=== PATIENT | female | born 1980 | race Caucasian/White ===

== ENCOUNTER 2022-05-28 18:10 | Inpatient (IN) | payer BC, MEDICARE, OTHER ==
[~2022-05-28] VITALS: Ht 177.8 cm; Wt 60.3 kg
[2022-05-28] MEDS ORDERED: ONDANSETRON HCL INJ 2MG/ML 2ML 2 MG/ML VIAL IV STA (18:19)
[2022-05-28] MEDS ORDERED: KETOROLAC TROMETHAMINE 30 MG/ML VIAL IV STA (18:19)
[2022-05-28] MEDS ORDERED: SODIUM CHLORIDE 0.9% 1000ML 1,000 ML IV ONE ×2 (18:30→22:00)
[2022-05-28 18:31] LABS: BASOPHILS # (AUTO) 0.1 (0.0-0.1); BASOPHILS % 0.3 % (0.0-1.0); EOSINOPHILS # (AUTO) 0.1 (0.0-0.4); EOSINOPHILS % 0.3 % (0.0-6.0); HEMATOCRIT 42.2 % (34.2-44.1); HEMOGLOBIN 13.7 g/dL (12.0-16.0); LYMPHOCYTES # (AUTO) 0.7 (1.0-3.2); LYMPHOCYTES % 3.1 % (18.0-39.1); MEAN CORPUSCULAR HEMOGLOBIN 28.9 pg (28-32); MEAN CORPUSCULAR HGB CONC 32.5 g/dL (31-35); MONOCYTES # (AUTO) 1.8 (0.2-0.8); MONOCYTES % 7.4 % (4.4-11.3); NEUTROPHILS # (AUTO) 20.7 (2.1-6.9); NEUTROPHILS % 86.7 % (38.7-80.0); PLATELET COUNT 225 x10e3/uL (140-360); RED BLOOD COUNT 4.74 x10e6/uL (3.6-5.1); RED CELL DISTRIBUTION WIDTH 11.7 % (11.7-14.4)
[2022-05-28 18:52] LABS: ALBUMIN 3.7 g/dL (3.5-5.0); ANION GAP 13.7 mmol/L (8-16); CALCIUM 9.6 mg/dL (8.4-10.2); CREATININE, SERUM 0.8 mg/dL (0.57-1.11); POTASSIUM 3.7 mmol/L (3.5-5.1)
[2022-05-28 19:02] LABS: CREATINE KINASE 67 IU/L (29-168)
[2022-05-28 19:04] LABS: CLARITY,URINE CLEAR (CLEAR); COLOR,URINE YELLOW (YELLOW)
[2022-05-28 19:05] LABS: KETONES,URINE NEGATIVE (NEGATIVE); LEUKOCYTE ESTERASE ,URINE NEGATIVE (NEGATIVE); NITRITE,URINE NEGATIVE (NEGATIVE); PROTEIN,URINE DIPSTICK 2+ (NEGATIVE); URINE UROBILINOGEN 0.2 mg/dL (0.2 - 1)
[2022-05-28 19:06] LABS: LIPASE 14 U/L (8-78)
[2022-05-28 19:16] LABS: BACTERIA,URINE MODERATE /HPF; EPITHELIAL CELLS,URINE FEW /LPF; MUCUS,URINE MODERATE (RARE)
[2022-05-28] MEDS ORDERED: IOPAMIDOL 370 MG/ML 100 ML INFUS..BTL INJ ONE (19:39)
[2022-05-28] MEDS ORDERED: ACETAMINOPHEN 325 MG TAB PO PRN (20:45)
[2022-05-28] MEDS ORDERED: ONDANSETRON HCL INJ 2MG/ML 2ML 2 MG/ML VIAL IV PRN (20:45)
[2022-05-28] MEDS: ALBUTEROL SULF 0.083% NEB SOLN 3 ML NEB NEB SCH (21:23)
[2022-05-29] MEDS ORDERED: SODIUM CHLORIDE 0.9% 1000ML 1,000 ML IV ONE (00:15)
[2022-05-29] MEDS: SODIUM CHLORIDE 0.9% 1000ML 1,000 ML IV SCH ×3 (00:35→15:45)
[2022-05-29] MEDS: ALBUTEROL SULF 0.083% NEB SOLN 3 ML NEB NEB SCH ×5 (01:05→23:30)
[2022-05-29] MEDS: IPRATROPIUM BROMIDE 0.02% 2.5 ML NEB NEB SCH ×5 (01:05→23:30)
[2022-05-29 06:35] LABS: BASOPHILS % 0.1 % (0.0-1.0); LYMPHOCYTES # (AUTO) 0.9 (1.0-3.2); LYMPHOCYTES % 6.5 % (18.0-39.1); MEAN CORPUSCULAR HEMOGLOBIN 28.7 pg (28-32); MEAN CORPUSCULAR HGB CONC 31.6 g/dL (31-35); MEAN CORPUSCULAR VOLUME 90.9 fL (81-99); MONOCYTES # (AUTO) 1.1 (0.2-0.8); NEUTROPHILS # (AUTO) 10.9 (2.1-6.9); NEUTROPHILS % 79.6 % (38.7-80.0); PLATELET COUNT 140 x10e3/uL (140-360); RED BLOOD COUNT 3.41 x10e6/uL (3.6-5.1)
[2022-05-29 06:43] LABS: HEMOGLOBIN 9.8 g/dL (12.0-16.0)
[2022-05-29 06:59] LABS: ALBUMIN 2.5 g/dL (3.5-5.0); ANION GAP 9.9 mmol/L (8-16); CALCIUM 7.5 mg/dL (8.4-10.2); CREATINE KINASE 38 IU/L (29-168); CREATININE, SERUM 0.72 mg/dL (0.57-1.11); POTASSIUM 3.9 mmol/L (3.5-5.1)
[2022-05-29 07:58] VITALS: BP 79/57
[2022-05-29 07:59] VITALS: BP 79/57
[2022-05-29 11:37] VITALS: BP 91/63
[2022-05-29] MEDS ORDERED: MYSOLINE50 MG PO (11:58)
[2022-05-29] MEDS ORDERED: AUBAGIO14 MG PO (11:58)
[2022-05-29 14:42] LABS: CREATINE KINASE 48 IU/L (29-168)
[2022-05-29 16:22] VITALS: BP 93/50
[2022-05-29 20:00] VITALS: BP 87/54
[2022-05-29 20:12] VITALS: BP 87/54
[2022-05-30] VITALS (8 sets, daily range): BP systolic 92–120; BP diastolic 54–84
[2022-05-30] MEDS: ALBUTEROL SULF 0.083% NEB SOLN 3 ML NEB NEB SCH ×6 (03:45→23:40)
[2022-05-30] MEDS: SODIUM CHLORIDE 0.9% 1000ML 1,000 ML IV SCH ×2 (05:02→10:06)
[2022-05-30 05:34] LABS: BASOPHILS % 0.2 % (0.0-1.0); EOSINOPHILS % 0.5 % (0.0-6.0); LYMPHOCYTES # (AUTO) 0.7 (1.0-3.2); LYMPHOCYTES % 7.8 % (18.0-39.1); MEAN CORPUSCULAR HEMOGLOBIN 28.8 pg (28-32); MEAN CORPUSCULAR HGB CONC 33.3 g/dL (31-35); MEAN CORPUSCULAR VOLUME 86.5 fL (81-99); MONOCYTES # (AUTO) 0.6 (0.2-0.8); MONOCYTES % 7.4 % (4.4-11.3); NEUTROPHILS # (AUTO) 7.1 (2.1-6.9); NEUTROPHILS % 83.4 % (38.7-80.0); PLATELET COUNT 143 x10e3/uL (140-360); RED BLOOD COUNT 3.47 x10e6/uL (3.6-5.1); RED CELL DISTRIBUTION WIDTH 12.1 % (11.7-14.4)
[2022-05-30 05:51] LABS: ANION GAP 10.4 mmol/L (8-16); CALCIUM 7.8 mg/dL (8.4-10.2); CREATININE, SERUM 0.63 mg/dL (0.57-1.11); POTASSIUM 3.4 mmol/L (3.5-5.1)
[2022-05-30] MEDS: IPRATROPIUM BROMIDE 0.02% 2.5 ML NEB NEB SCH ×4 (06:00→23:40)
[2022-05-30] MEDS: PRIMIDONE 50 MG TAB PO SCH (10:05)
[2022-05-30] MEDS ORDERED: POTASSIUM CHLORIDE 10MEQ EA PO ONE ×2 (14:00→16:30)
[2022-05-31] VITALS: BP 107/51
[2022-05-31] MEDS: ALBUTEROL SULF 0.083% NEB SOLN 3 ML NEB NEB SCH ×3 (03:40→10:49)
[2022-05-31 04:00] VITALS: BP 113/75
[2022-05-31 06:08] LABS: BASOPHILS % 0.5 % (0.0-1.0); EOSINOPHILS # (AUTO) 0.1 (0.0-0.4); EOSINOPHILS % 1.3 % (0.0-6.0); HEMATOCRIT 30.9 % (34.2-44.1); HEMOGLOBIN 10.3 g/dL (12.0-16.0); LYMPHOCYTES # (AUTO) 0.6 (1.0-3.2); LYMPHOCYTES % 10.7 % (18.0-39.1); MEAN CORPUSCULAR HEMOGLOBIN 28.9 pg (28-32); MEAN CORPUSCULAR HGB CONC 33.3 g/dL (31-35); MEAN CORPUSCULAR VOLUME 86.6 fL (81-99); MONOCYTES # (AUTO) 0.3 (0.2-0.8); MONOCYTES % 6.2 % (4.4-11.3); NEUTROPHILS # (AUTO) 4.4 (2.1-6.9); NEUTROPHILS % 80.8 % (38.7-80.0); PLATELET COUNT 168 x10e3/uL (140-360); RED BLOOD COUNT 3.57 x10e6/uL (3.6-5.1)
[2022-05-31 06:35] LABS: ANION GAP 12.7 mmol/L (8-16); CALCIUM 8.6 mg/dL (8.4-10.2); CREATININE, SERUM 0.67 mg/dL (0.57-1.11); POTASSIUM 3.7 mmol/L (3.5-5.1)
[2022-05-31] MEDS: SODIUM CHLORIDE 0.9% 1000ML 1,000 ML IV SCH (06:35)
[2022-05-31] MEDS: IPRATROPIUM BROMIDE 0.02% 2.5 ML NEB NEB SCH (06:38)
[2022-05-31 08:00] VITALS: BP 106/64
[2022-05-31 08:33] VITALS: BP 106/64
[2022-05-31] MEDS: PRIMIDONE 50 MG TAB PO SCH (09:19)
[2022-05-31] MEDS ORDERED: CEFUROXIME250 MG PO (11:36)
[2022-05-31] MEDS ORDERED: ZITHROMAX500 MG PO (11:36)
[2022-05-31] MEDS ORDERED: ACETAMINOPHEN325 M1 PO (11:36)
[2022-05-31] MEDS ORDERED: ONDANSETRON ODT4 MG PO (11:38)
[2022-05-31 11:59] VITALS: BP 106/64
== END 2022-05-31 13:34 | disposition home or self-care (01) | DRG 871 ==
LOC: ER 18:15 → ERHOLD 20:44 → MED/SURG3 05-29 02:58
PROVIDERS: ADMIT Internal Medicine; ATTEND Internal Medicine
DX: A41.9 Sepsis, unspecified organism (principal); J18.9 Pneumonia, unspecified organism; J69.0 Pneumonitis due to inhalation of food and vomit; R11.2 Nausea with vomiting, unspecified; G35 Multiple sclerosis; E87.6 Hypokalemia; Z90.49 Acquired absence of other specified parts of digestive tract; Z87.01 Personal history of pneumonia (recurrent); Z20.822 Contact with and (suspected) exposure to COVID-19
CPT/HCPCS: 36415; 74177; 80048; 80053; 81001; 82550; 82553; 83605; 83690; 84484; 84702; 85025; 87040; 93005; 94640; 94799; 99284; J0456; J0696; J1885; J2405; J2543; J7030; J7050; Q9967

== ENCOUNTER 2024-09-26 17:15 | Emergency (ER) | payer BC, MEDICARE, OTHER ==
[~2024-09-26] VITALS: Ht 180.3 cm; Wt 60.8 kg
[~2024-09-26 17:15] MED LIST: ACETAMINOPHEN325 M1 PO; AUBAGIO14 MG PO; CEFUROXIME250 MG PO; MYSOLINE50 MG PO; ONDANSETRON ODT4 MG PO; ZITHROMAX500 MG PO
[2024-09-26 17:29] VITALS: PULSE 82; RESP 16; TEMP 98.7
[2024-09-26] MEDS: LIDOCAINE HCL 1% LOCAL INJ 20 ML VIAL INJ STA (18:14)
[2024-09-26] MEDS ORDERED: CEPHALEXIN500 MG PO (18:17)
[2024-09-26 18:37] VITALS: BP 97/80; PULSE 87; RESP 16; TEMP 98; O2SAT 97
== END 2024-09-26 18:41 | disposition home or self-care (01) ==
LOC: ER 17:30
DX: S01.81XA Laceration without foreign body of other part of head, initial encounter (principal); W22.09XA Striking against other stationary object, initial encounter; Y92.89 Other specified places as the place of occurrence of the external cause; G35 Multiple sclerosis
CPT/HCPCS: 99284